=== PATIENT | female | born 1980 | race Caucasian/White ===

== ENCOUNTER 2019-02-21 19:11 | Emergency (ER) | payer OTHER ==
[2019-02-21] MEDS ORDERED: NS 1,000 ML IV ONE (19:27)
[2019-02-21 19:44] LABS: PLATELET COUNT 247 10^3/uL (150-400)
[2019-02-21] MEDS ORDERED: KETOROLAC 30 MG/1 ML SDV IVP ONE (19:51)
--- NOTE | 2019-02-21 19:54 | EDPHY ---
H & P Stated Complaint: RLQ abd pain Time Seen by Provider: 02/21/19 19:27 HPI/ROS: CHIEF COMPLAINT: Right lower quadrant pain HISTORY OF PRESENT ILLNESS: 38-year-old female with history of kidney stones presents with right lower quadrant pain. Onset of abdominal cramping earlier today. Fairly sudden onset of right lower quadrant pain a few hours ago. The pain is sharp and stabbing and moderate to severe. No associated symptoms. No vomiting, diarrhea, urinary symptoms or fever. Feels somewhat similar to previous kidney stone. REVIEW OF SYSTEMS: complete 10 point ROS reviewed and is negative except for the noted elements in the HPI Source: Patient - Personal History LMP (Females 10-55): Now Current Tetanus/Diphtheria Vaccine: Yes Current Tetanus Diphtheria and Acellular Pertussis (TDAP): Yes - Medical/Surgical History Hx Asthma: No Hx Chronic Respiratory Disease: No Hx Diabetes: No Hx Cardiac Disease: No Hx Renal Disease: No Hx Cirrhosis: No Hx Alcoholism: No Hx HIV/AIDS: No Hx Splenectomy or Spleen Trauma: No Other PMH: kidney stones - Social History Smoking Status: Never smoked - Physical Exam Exam: General Appearance: Alert, pleasant Eyes: Pupils equal and round, no conjunctival pallor ENT, Mouth: Mucous membranes moist Neck: Normal inspection Respiratory: Lungs are clear to auscultation Cardiovascular: Regular rate and rhythm Gastrointestinal: Abdomen is soft, right lower quadrant tenderness, no peritoneal signs Neurological: A&O, nonfocal, normal gait Skin: Warm and dry Extremities: Normal inspection Psychiatric: Mood and affect normal Constitutional: Initial Vital Signs Temperature (C) 36.3 C 02/21/19 19:17 Heart Rate 75 02/21/19 19:17 Respiratory Rate 16 02/21/19 19:17 Blood Pressure 136/75 H 02/21/19 19:17 O2 Sat (%) 98 02/21/19 19:17 O2 Delivery Mode Room Air Allergies/Adverse Reactions: Sulfa (Sulfonamide Antibiotics) Allergy (Verified 02/21/19 19:19) Home Medications: Medication Instructions Recorded Claritin 02/21/19 Medical Decision Making - Diagnostics Imaging Results: Abdomen/Pelvis CT 02/21/19 19:51 Impression: Bilateral nonobstructing renal calculi. Otherwise, unremarkable noncontrast CT. Findings and recommendations discussed with ANJUM DILLON at 2035 hour, 2018. Pelvic/Renal Ultrasound 02/21/19 20:40 Impression: 1. No acute process by ultrasound. 2. Possible intramural fundal fibroid measuring up to 1.1 cm. 3. Rounded echogenic lesion measuring 1.2 cm and the left ovary may represent an involuting corpus luteum cyst, endometrioma, or hemorrhagic cyst. Recommend follow-up ultrasound in 6-8 weeks to ensure resolution. Findings and recommendations discussed with ANJUM DILLON at 2117 hour, 2018. 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 Labs reveal leukocytosis , not . CT scan of the abdomen pelvis obtained and revealed no evidence of ureteral calculus or appendicitis. The appendix appears normal and the right ovary is not clearly visualized. Results discussed with the patient. Will proceed with pelvic ultrasound to rule out ovarian cyst. She currently feels more comfortable after IV Toradol. Urinalysis pending. Pelvic ultrasound reveals no evidence of rt ovarian cyst. Results d/w pt, including fibroid, left ovarian mass. Unclear etiology of pain. Continues to have some pain, though appears markedly improved after IV Toradol. Abd exam unchanged. d/w pt options, including admission vs d/c home. Pt greatly prefers to go home, will return for worsening symptoms or any concerns. Advise 12-24 hr followup for continued pain. Vicodin prepack given. Differential Diagnosis: Differential diagnosis includes though it is not limited to ectopic , ovarian cyst, ovarian torsion, PID, UTI, appendicitis. - Data Points Laboratory Results: Laboratory Results 02/21/19 19:30 02/21/19 19:30 Medications Given: Discontinued Medications Hydrocodone Bitart/Acetaminophen ([place] 5/325mg Prepack#6) 1 btl TAKEHOME EDNOW ONE Stop: 02/21/19 21:40 Last Admin: 02/21/19 21:50 Dose: 1 btl Sodium Chloride (Ns) 1,000 mls @ 0 mls/hr IV EDNOW ONE; Wide Open PRN Reason: Protocol Stop: 02/21/19 19:28 Last Admin: 02/21/19 19:30 Dose: 1,000 mls Ketorolac Tromethamine (Toradol) 30 mg IVP EDNOW ONE Stop: 02/21/19 19:52 Last Admin: 02/21/19 19:54 Dose: 30 mg Departure - Departure Disposition: Home, Routine, Self-Care Clinical Impression: Abdominal pain Qualifiers: Abdominal location: right lower quadrant Qualified Code(s): R10.31 - Right lower quadrant pain Condition: Good Instructions: Hydrocodone/Acetaminophen (By mouth), Acute Abdominal Pain (ED) Additional Instructions: Ibuprofen 600 mg 3 times daily while the pain persists. Take [place] 1 tablet every 4 hr as needed for severe pain. Return for worsening symptoms or any concerns. There is a small cyst on the left ovary. You will need a repeat ultrasound in 6 -8 weeks to followup on this. You also have a uterine fibroid. Sometimes we are unable to diagnose an obvious cause of abdominal pain in the Emergency Department. Based upon our evaluation today, we see no obvious explanation for your pain. Because more serious conditions can be difficult to diagnose early in the course of their presentation, we ask that you return to the Emergency Department in 12-24 hours for a recheck if you are still having pain. This is necessary to exclude the development of a more serious condition such as appendicitis or other intra-abdominal emergency. In the event your pain markedly increases before that time or you develop intractable vomiting or fever return to the Emergency Department immediately. Referrals: Cristóbal Acuna MD [Medical Doctor] - 1 day, if not improved
[2019-02-21] MEDS ORDERED: HYDROCOD/APAP 5/325 PREPACK#6 BTL TAKEHOME ONE (21:39)
[2019-02-21 21:54] VITALS: BP 98/49
== END 2019-02-21 21:50 | disposition home or self-care (01) ==
DX: R10.31 Right lower quadrant pain (principal); Z87.442 Personal history of urinary calculi
CPT/HCPCS: 96374; J1885